=== PATIENT | male | born 1955 | race Caucasian/White ===

== ENCOUNTER → 2016-05-17 | Outpatient (CLI) | payer OTHER ==
--- NOTE | 2016-05-17 17:07 | RADRPT ---
PROCEDURE: XR pelvis/right hip. CLINICAL INDICATION: Hip pain TECHNIQUE: AP pelvis/AP and lateral right hip views performed COMPARISON: No prior studies are available for comparison. FINDINGS: There is moderate bilateral hip osteoarthrosis. This is associated with joint space narrowing, subch ondral sclerosis , subchondral cyst formation and osteophytosis. There is normal mineralization. N o fractures or osseous lesions are identified. The soft tissues are unremarkable. IMPRESSION: Moderate bilateral hip osteoarthrosis. RPTAT: [facility] .Butch Morris MD, MD Date Time Electronically viewed and signed by .Butch Morris MD, MD on 05/17/2016 17:07 .B/
== END | disposition home or self-care (01) ==
LOC: HKI 15:07
PROVIDERS: ATTEND Orthopaedic Surgery
DX: M25.551 Pain in right hip (principal); M16.0 Bilateral primary osteoarthritis of hip
CPT/HCPCS: 73502; Z7500; G0463